=== PATIENT | male | born 1995 | race African-American/Black ===

== ENCOUNTER 2018-01-02 20:09 | Emergency (ER) | payer MEDICAID ==
--- NOTE | 2018-01-02 20:17 | Emergency Department Record ---
History of Present Illness - General Chief Complaint: Ankle/Foot Injury Stated Complaint: LT ANKLE PAIN Time Seen by Provider: 01/02/18 20:11 Source: Patient Mode of Arrival: Ambulatory Limitations: No limitations - History of Present Illness Initial Comments: The patient was playing in a foot ball scrimmage and made a tackle and then was piled on. When he got up his ankle was very painful. He was able to run on it but then had to sit out due to the pain being to severe. Complaint: Ankle injury Onset/Timin -: Hour(s) - Related Data Previous Rx's Medication Instructions Recorded Naproxen [Naprosyn] 500 mg PO BID #14 tablet. 01/02/18 Allergies Allergy/AdvReac Type Severity Reaction Status Date / Time No Known Drug Allergies Allergy Verified 01/02/18 20:13 Review of Systems Constitutional: Denies: Chills, Fever Physical Exam - General General Appearance: Alert, Oriented x3, Cooperative, No acute distress - Head Head exam: Atraumatic, Normocephalic, Normal inspection - Eye Eye exam: Normal appearance, PERRL - Neck Neck exam: Normal inspection - Extremities Extremities exam: Normal inspection, Tenderness (There is tenderness at the insertion of the anterior TFL area. There is no ligamentous laxity or anterior drawer sign. The L foot is NVI with a normal achilles tendon.). negative: Calf tenderness, Full ROM (decreased full ROM due to pain. ) Image of Feet: 1 - Area of pain and tenderness. - Neurological Neurological exam: Alert. negative: Motor sensory deficit Course - Reevaluation(s) Reevaluation #1: I did explain to the patient the need for non weight bearing and to use the crutches and brace for the ankle. He is to see a motorsports technician in 3 days to try to start back putting weight on the ankle. 01/02/18 20:45 Medical Decision Making - Data Complexity MDM Data: X-Ray Ordered and/or Reviewed - Radiology Data Radiology results: Report reviewed (L ankle: Neg.) Disposition Disposition: Discharge Clinical Impression: Left ankle sprain Qualifiers: Encounter type: initial encounter Involved ligament of ankle: unspecified ligament Qualified Code(s): S93.402A - Sprain of unspecified ligament of left ankle, initial encounter Disposition: Home, Self-Care Condition: (2) Stable Instructions: Ankle Sprain (ED) Additional Instructions: Please use the brace during the day and do not walk on the L ankle. Use your crutches at all times. Please use the Naprosyn for pain and have the ankle rechecked in 3 days by one of the sports trainers. Prescriptions: Naproxen [Naprosyn] 500 mg PO BID #14 tablet.dr Forms: Patient Portal Access Time of Disposition: 20:47 Quality - Quality Measures Quality Measures: N/A - Blood Pressure Screening View Details: Yes Does Patient Have Any of the Following: No Blood Pressure Classification: Pre-Hypertensive BP Reading Systolic Measurement: 142 Diastolic Measurement: 87 Screening for High Blood Pressure: < Pre-Hypertensive BP, F/U Documented > [ [id number]] Pre-Hypertensive Follow-up Interventions: Referral to alternative/primary care provider.
[2018-01-02] MEDS ORDERED: NAPROXEN 250 MG TABLET PO ONE (20:42)
--- NOTE | 2018-01-04 07:13 | RADIOLOGY REPORT ---
EXAM: LEFT ANKLE HISTORY: PAIN. TECHNIQUE: Three views of the left ankle were performed. FINDINGS: No evidence of fracture or dislocation. No lytic or blastic lesion. IMPRESSION: NEGATIVE LEFT ANKLE EXAMINATION. JOB NUMBER: [id number] MTDD
== END 2018-01-02 20:55 | disposition home or self-care (01) ==
LOC: ER 20:09
DX: S93.402A Sprain of unspecified ligament of left ankle, initial encounter (principal); W03.XXXA Other fall on same level due to collision with another person, initial encounter; Y93.61 Activity, american tackle football
CPT/HCPCS: 99283